=== PATIENT | male | born 1935 | race African-American/Black ===

== ENCOUNTER 2018-03-21 18:56 | Inpatient (IN) | payer OTHER ==
[2018-03-21] MEDS ORDERED: SODIUM CHLORIDE 500 ML IV STA (19:34)
--- NOTE | 2018-03-21 19:34 | PDOC ---
History of Present Illness - General Chief Complaint: Nausea/Vomiting Stated Complaint: VOMIT Time Seen by Provider: 03/21/18 19:33 History Source: Patient - History of Present Illness Initial Comments: 03/21/18 20:08 82 year old male with pmhx of dysphagia, CVA, TYpe 1 DM, HTN GERD, BPH, pressure ulcer, contractures, bed bound male BIBA from [facility] for persistent vomiting x 2 weeks . unable to get IV hydration in the [facility]. patient has no abdominal pain c/o epigastric disomfort and burning chest. denies fever/ chills, 1 Past History - Past Medical History Allergies/Adverse Reactions: Allergies Allergy/AdvReac Type Severity Reaction Status Date / Time No Known Allergies Allergy Verified 03/21/18 19:10 Home Medications: Ambulatory Orders Acetaminophen [Tylenol] 650 mg PO DAILY 03/21/18 Amlodipine Besylate [Norvasc -] 5 mg PO DAILY 03/21/18 Baclofen 5 mg PO DAILY 03/21/18 Collagenase Clostridium Hist. [Santyl] 1 applic TP DAILY 03/21/18 Docusate Sodium [Colace] 200 mg PO DAILY 03/21/18 Famotidine [Pepcid] 20 mg PO DAILY 03/21/18 Ferrous Sulfate 325 mg PO DAILY 03/21/18 Linagliptin [Tradjenta] 5 mg PO DAILY 03/21/18 Mag Hydrox/Al Hydrox/Simeth [Mylanta Oral Suspension -] 10 ml PO DAILY 03/21/18 Mirtazapine [Remeron -] 15 mg PO DAILY 03/21/18 Omeprazole 20 mg PO DAILY 03/21/18 Ondansetron [Zofran -] 4 mg PO DAILY 03/21/18 Polyethylene Glycol 3350 [Glycolax] 17 gm PO DAILY 03/21/18 Simethicone 125 mg PO DAILY 03/21/18 Tamsulosin HCl [Flomax] 0.4 mg PO DAILY 03/21/18 Miscellaneous Medical Supply [Outpatient Order] 1 each ASDIR #1 misc Anemia: Yes CVA: Yes COPD: No Diabetes: Yes GI Disorders: Yes (GERD) Disorders: Yes (BPH) HTN: Yes - Immunization History Immunization Up to Date: Yes - Suicide/Smoking/Psychosocial Hx Smoking History: Never smoked Have you smoked in the past 12 months: No Information on smoking cessation initiated: No Hx Alcohol Use: No Drug/Substance Use Hx: No Review of Systems - Review of Systems Able to Perform ROS?: Yes Is the patient limited Tongan proficient: No Constitutional: No: Symptoms Reported, See HPI, Chills, Diaphoresis, Fever, Loss of Appetite, Malaise, Night Sweats, Weakness, Weight Stable, Unintentional Wgt. Loss, Unexplained wgt Loss, Other HEENTM: No: Symptoms Reported, See HPI, Eye Pain, Blurred Vision, Tearing, Recent change in vision, Double Vision, Cataracts, Ear Pain, Ocular Prothesis, Ear Discharge, Nose Pain, Nose Congestion, Tinnitus, Nose Bleeding, Hearing Loss , Throat Pain, Throat Swelling, Mouth Pain, Dental Problems, Difficulty Swallowing, Mouth Swelling, Other ABD/GI: Yes: Nausea, Vomiting. No: Abdominal cramping Musculoskeletal: No: Symptoms Reported, See HPI, Back Pain, Gout, Joint Pain, Joint Swelling, Muscle Pain, Muscle Weakness, Neck Pain, Joint Stiffness, Other *Physical Exam - Vital Signs Last Vital Signs Temp Pulse Resp BP Pulse Ox 98.6 F 99 H 17 126/65 99 03/21/18 19:02 03/21/18 19:02 03/21/18 19:02 03/21/18 19:02 03/21/18 19:02 - Physical Exam General Appearance: Yes: Appropriately Dressed Respiratory/Chest: positive: Lungs Clear, Normal Breath Sounds Cardiovascular: positive: Regular Rhythm, Regular Rate Gastrointestinal/Abdominal: positive: Normal Bowel Sounds, Soft. negative: Tender Extremity: positive: Normal Capillary Refill, Normal Inspection, Normal Range of Motion Integumentary: positive: Normal Color, Dry, Warm Neurologic: positive: Fully Oriented, Alert, Other (contracted lower extremities. ) Moderate Sedation - Procedure Monitoring Vital Signs: Procedure Monitoring Vital Signs Temperature 98.6 F 03/21/18 19:02 Pulse Rate 99 H 03/21/18 19:02 Respiratory Rate 17 03/21/18 19:02 Blood Pressure 126/65 03/21/18 19:02 O2 Sat by Pulse Oximetry (%) 99 03/21/18 19:02 ED Treatment Course - LABORATORY CBC & Chemistry Diagram: 03/26/18 06:30 03/26/18 06:30 Progress Note - Progress Note Progress Note: A: dehydration; FTT, UTI P: labs EKG IVF CTAP chest xray Medical Decision Making - Medical Decision Making 03/21/18 21:25 Hgb: 7.7. NE record last Hgb 8.3 on 03/12/18 03/22/18 00:17 CTAP: Moderate size left pleural effusion with enhancing pleura which may be chronic and/or indicate empyema. Left basilar consolidation may represent round atelectasis or pneumonia. Right lower lobe calcified pleural plaque with associated round atelectasis. Splenomegaly of uncertain cause. Mild periportal edema should be correlated and LFTs. Hepatitis is considered. Anasarca. Moderate prostate enlargement. 03/22/18 00:40 patient Failure to thirve in the [facility] with persistent vomiting. will place in obs for further management of care. patient signed out to Dr. Dumont for observation status *DC/Admit/Observation/Transfer Diagnosis at time of Disposition: Dehydration, Epigastric abdominal pain UTI (urinary tract infection) Qualifiers: Urinary tract infection type: acute cystitis Hematuria presence: without hematuria Qualified Code(s): N30.00 - Acute cystitis without hematuria Anemia Qualifiers: Anemia type: unspecified type Qualified Code(s): D64.9 - Anemia, unspecified Nausea & vomiting Qualifiers: Vomiting type: unspecified Vomiting Intractability: non-intractable Qualified Code(s): R11.2 - Nausea with vomiting, unspecified - Discharge Dispostion Decision to Admit order: Yes - Prescriptions - Referrals - Patient Instructions - Post Discharge Activity
[2018-03-21] MEDS ORDERED: ONDANSETRON 4 MG/2 ML VIAL IVPUSH ONE (19:45)
--- NOTE | 2018-03-21 20:01 | PDOC ---
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, abd soft, nt, nd, no guarding <Yoandy Pierre - Last Filed: 03/22/18 01:40> ED Treatment Course - LABORATORY CBC & Chemistry Diagram: 03/21/18 20:09 03/21/18 20:09 - ADDITIONAL ORDERS Additional order review: Laboratory Results 03/21/18 20:09 Lactic Acid 0.8 03/21/18 20:09 RBC 3.04 L MCV 75.6 L MCHC 33.7 RDW 18.6 H MPV 8.7 Neutrophils % 77.3 Lymphocytes % 9.8 Monocytes % 10.8 H Eosinophils % 1.4 Basophils % 0.7 - Medications Given in the ED: ED Medications Discontinued Medications Generic Name Dose Route Start Last Admin Trade Name Jarrett PRN Reason Stop Dose Admin Sodium Chloride 500 mls @ 500 mls/hr 03/21/18 19:34 03/21/18 20:58 Normal Saline - IV 03/21/18 20:33 500 mls/hr ASDIR STA Administration Famotidine/Sodium Chloride 20 mg in 50 mls @ 100 mls/hr 03/21/18 20:14 20:58 Pepcid 20 Mg Premixed Ivpb - IVPB 03/21/18 20:43 100 mls/hr ONCE ONE Administration Ondansetron HCl 4 mg 03/21/18 19:45 03/21/18 20:58 Zofran Injection IVPUSH 03/21/18 19:46 4 mg ONCE ONE Administration <Emmy Guardado - Last Filed: 03/21/18 21:13> - LABORATORY CBC & Chemistry Diagram: 03/21/18 20:09 03/21/18 20:09 <Yoandy Pierre - Last Filed: 03/22/18 01:40> Medical Decision Making - Medical Decision Making 03/21/18 20:50 82M sent from [place] 2/2 persistent vomiting over 2 weeks. f/u labs, IVF hydration re-eval likely admit <Yoandy Pierre - Last Filed: 03/22/18 01:40> *DC/Admit/Observation/Transfer - Attestations Scribe Attestion: 03/21/18 21:14 Documentation prepared by RYLAND Deal, acting as manager medical writing for Yoandy Pierre MD. <Emmy Guardado - Last Filed: 03/21/18 21:13> <Yoandy Pierre - Last Filed: 03/22/18 01:40> Diagnosis at time of Disposition: Dehydration, UTI (urinary tract infection), Anemia, Epigastric abdominal pain, Nausea & vomiting
[2018-03-21] MEDS ORDERED: FAMOTIDINE 20 MG/50 ML IVPB 20 MG/50 ML MG IVPB ONE ×2 (20:14→20:47)
[2018-03-21 20:37] LABS: BASO % 0.7 % (0-2.0); EOS % 1.4 % (0-4.5); HEMOGLOBIN 7.7 GM/dL (11.7-16.9); LYMPH % 9.8 % (8-40); MCH 25.5 pg (25.7-33.7); MCHC 33.7 g/dl (32.0-35.9); MEAN CELL VOLUME 75.6 fl (80-96); MEAN PLT VOLUME 8.7 fl (7.5-11.1); MONO % 10.8 % (3.8-10.2); NEUT % 77.3 % (42.8-82.8); PLATELET COUNT 421 K/MM3 (134-434); RBC 3.04 M/mm3 (4.00-5.60); RDW 18.6 % (11.9-15.9); WHITE BLOOD COUNT 6.1 K/mm3 (4.0-10.0)
[2018-03-21] MEDS ORDERED: ONDANSETRON 4 MG/2 ML VIAL ONE (20:47)
[2018-03-21 21:12] LABS: URINE APPEARANCE TURBID; URINE BILIRUBIN NEGATIVE (<2.0 mg/dL); URINE COLOR AMBER; URINE GLUCOSE (UA) NEGATIVE (NEGATIVE); URINE KETONE NEGATIVE (NEGATIVE); URINE LEUK ESTERASE 3+ (NEGATIVE); URINE NITRITE NEGATIVE (NEGATIVE); URINE PROTEIN 2+ (NEGATIVE)
[2018-03-21 21:28] LABS: URINE BACTERIA MANY /hpf (NONE SEEN)
[2018-03-21 21:41] LABS: ALBUMIN 2.8 g/dl (3.4-5.0); ALK PHOS 98 U/L (45-117); ANION GAP 9 MMOL/L (8-16); BILIRUBIN,TOTAL 0.3 mg/dL (0.2-1); BLOOD UREA NITROGEN 26 mg/dL (7-18); CALCIUM 8.3 mg/dL (8.5-10.1); CHLORIDE 102 mmol/L (98-107); CO2 29 mmol/L (21-32); CREATININE 0.8 mg/dL (0.55-1.3); GLUCOSE,RANDOM 218 mg/dL (74-106); LIPASE 138 U/L (73-393); POTASSIUM 4.7 mmol/L (3.5-5.1); SGOT/AST 15 U/L (15-37); SGPT/ALT 27 U/L (13-61); SODIUM 140 mmol/L (136-145); TOT PROT 6.2 g/dl (6.4-8.2)
[2018-03-21] MEDS ORDERED: SODIUM CHLORIDE 1,000 ML IV SCH (21:45)
[2018-03-21 22:03] LABS: VENOUS PC02 48.7 mmHg (38-52); VENOUS PH 7.41 (7.32-7.42); VENOUS PO2 73.2 mmHg (28-48)
[2018-03-22] MEDS ORDERED: CEFTRIAXONE 1,000 MG in DEXTROSE 5%-WATER - 50 ML IVPB ONE (00:25)
[2018-03-22] MEDS ORDERED: CEFTRIAXONE 1 GM/50 ML BAG ONE (00:28)
--- NOTE | 2018-03-22 00:44 | HP ---
CHIEF COMPLAINT: vomiting, dehydration PCP: Manohar HISTORY OF PRESENT ILLNESS: 82 year old male with pmhx of dysphagia, CVA, TYpe 1 DM, HTN GERD, BPH, pressure ulcer, contractures, bed bound male BIBA from [facility] for persistent vomiting for several days. Patient also was c/o epigastric pain however when I saw him he denied. No shortness of breath. ER course was notable for: (1) abdomen/pelvis CT (2) IV fluid hydration (3) Recent Travel: no PAST MEDICAL HISTORY: dysphagia, CVA, TYpe 1 DM, HTN GERD, BPH, pressure ulcer, contractures PAST SURGICAL HISTORY: no Social History: Smoking:no Alcohol: no Drugs: no Family History:no Allergies No Known Allergies Allergy (Verified 03/21/18 19:10) HOME MEDICATIONS: Home Medications Medication Instructions Recorded Acetaminophen [Tylenol] 650 mg PO DAILY 03/21/18 Amlodipine Besylate [Norvasc -] 5 mg PO DAILY 03/21/18 Baclofen 5 mg PO DAILY 03/21/18 Collagenase Clostridium Hist. 1 applic TP DAILY 03/21/18 [Santyl] Docusate Sodium [Colace] 200 mg PO DAILY 03/21/18 Famotidine [Pepcid] 20 mg PO DAILY 03/21/18 Ferrous Sulfate 325 mg PO DAILY 03/21/18 Linagliptin [Tradjenta] 5 mg PO DAILY 03/21/18 Mag Hydrox/Al Hydrox/Simeth 10 ml PO DAILY 03/21/18 [Mylanta Oral Suspension -] Mirtazapine [Remeron -] 15 mg PO DAILY 03/21/18 Omeprazole 20 mg PO DAILY 03/21/18 Ondansetron [Zofran -] 4 mg PO DAILY 03/21/18 Polyethylene Glycol 3350 [Glycolax] 17 gm PO DAILY 03/21/18 Simethicone 125 mg PO DAILY 03/21/18 Tamsulosin HCl [Flomax] 0.4 mg PO DAILY 03/21/18 REVIEW OF SYSTEMS CONSTITUTIONAL: Absent: fever, chills, diaphoresis, generalized weakness, malaise, loss of appetite, weight change HEENT: Absent: rhinorrhea, nasal congestion, throat pain, throat swelling, difficulty swallowing, mouth swelling, ear pain, eye pain, visual changes CARDIOVASCULAR: Absent: chest pain, syncope, palpitations, irregular heart rate, lightheadedness , peripheral edema RESPIRATORY: Absent: cough, shortness of breath, dyspnea with exertion, orthopnea, wheezing, stridor, hemoptysis GASTROINTESTINAL: Absent: abdominal pain, abdominal distension, diarrhea, constipation, melena, hematochezia Present: nausea, vomiting, GENITOURINARY: Absent: dysuria, frequency, urgency, hesitancy, hematuria, flank pain, genital pain MUSCULOSKELETAL: Absent: myalgia, arthralgia, joint swelling, back pain, neck pain SKIN: Absent: rash, itching, pallor HEMATOLOGIC/IMMUNOLOGIC: Absent: easy bleeding, easy bruising, lymphadenopathy, frequent infections ENDOCRINE: Absent: unexplained weight gain, unexplained weight loss, heat intolerance, cold intolerance NEUROLOGIC: Absent: headache, focal weakness or paresthesias, dizziness, unsteady gait, seizure, mental status changes, bladder or bowel incontinence PSYCHIATRIC: Absent: anxiety, depression, suicidal or homicidal ideation, hallucinations. PHYSICAL EXAMINATION Vital Signs - 24 hr 03/21/18 03/21/18 03/22/18 19:02 22:34 00:33 Temperature 98.6 F Pulse Rate 99 H Pulse Rate [ 96 H 95 H Apical] Respiratory 17 18 16 Rate Blood Pressure 126/65 Blood Pressure 140/56 L 135/50 L [Left Arm] O2 Sat by Pulse 99 94 L 95 Oximetry (%) GENERAL: Awake, alert, thin, cachectic HEAD: Normal with no signs of trauma. EYES: Pupils equal, round and reactive to light, extraocular movements intact, sclera anicteric, conjunctiva clear. No lid lag. EARS, NOSE, THROAT: Ears normal, nares patent, oropharynx clear without exudates. Moist mucous membranes. NECK: Normal range of motion, supple without lymphadenopathy, JVD, or masses. LUNGS: Breath sounds equal, clear to auscultation bilaterally. No wheezes, and no crackles. No accessory muscle use. HEART: Regular rate and rhythm, normal S1 and S2 without murmur, rub or gallop. ABDOMEN: Soft, nontender, not distended, normoactive bowel sounds, no guarding, no rebound, no masses. No hepatomegaly or splenomegaly. MUSCULOSKELETAL: Normal range of motion at all joints. No bony deformities or tenderness. No CVA tenderness. UPPER EXTREMITIES: 2+ pulses, warm, well-perfused. No cyanosis. No clubbing. No peripheral edema. LOWER EXTREMITIES: 2+ pulses, warm, well-perfused. No calf tenderness. No peripheral edema. NEUROLOGICAL: bedbound, contractures + , unable to ambulate PSYCHIATRIC: Cooperative. Good eye contact. Appropriate mood and affect. SKIN: Warm, dry, normal turgor, no rashes or lesions noted, normal capillary refill. NO active skin ulcers as per nursing Laboratory Results - last 24 hr 03/21/18 03/21/18 03/21/18 20:09 20:09 20:09 WBC 6.1 RBC 3.04 L Hgb 7.7 L Hct 23.0 L MCV 75.6 L MCH 25.5 L MCHC 33.7 RDW 18.6 H Plt Count 421 MPV 8.7 Absolute Neuts (auto) 4.7 Neutrophils % 77.3 Lymphocytes % 9.8 Monocytes % 10.8 H Eosinophils % 1.4 Basophils % 0.7 Nucleated RBC % 0 VBG pH POC VBG pCO2 POC VBG pO2 Mixed VBG HCO3 Sodium 140 Potassium 4.7 Chloride 102 Carbon Dioxide 29 Anion Gap 9 BUN 26 H Creatinine 0.8 Creat Clearance w eGFR > 60 Random Glucose 218 H Lactic Acid Calcium 8.3 L Total Bilirubin 0.3 AST 15 ALT 27 Alkaline Phosphatase 98 Creatine Kinase 20 L Troponin I < 0.02 Total Protein 6.2 L Albumin 2.8 L Lipase 138 Urine Color Urine Appearance Urine pH Ur Specific [place] Urine Protein Urine Glucose (UA) Urine Ketones Urine Blood Urine Nitrite Urine Bilirubin Urine Urobilinogen Ur Leukocyte Esterase Urine WBC (Auto) Urine RBC (Auto) Urine Bacteria Stool Occult Blood Acetone, Qual 03/21/18 03/21/18 03/21/18 20:09 20:09 21:00 WBC RBC Hgb Hct MCV MCH MCHC RDW Plt Count MPV Absolute Neuts (auto) Neutrophils % Lymphocytes % Monocytes % Eosinophils % Basophils % Nucleated RBC % VBG pH POC VBG pCO2 POC VBG pO2 Mixed VBG HCO3 Sodium Potassium Chloride Carbon Dioxide Anion Gap BUN Creatinine Creat Clearance w eGFR Random Glucose Lactic Acid 0.8 Calcium Total Bilirubin AST ALT Alkaline Phosphatase Creatine Kinase Troponin I Total Protein Albumin Lipase Urine Color Faby Urine Appearance Turbid Urine pH 5.0 Ur Specific [place] 1.014 Urine Protein 2+ H Urine Glucose (UA) Negative Urine Ketones Negative Urine Blood 1+ H Urine Nitrite Negative Urine Bilirubin Negative Urine Urobilinogen 2.0 Ur Leukocyte Esterase 3+ H Urine WBC (Auto) 900 Urine RBC (Auto) 6 Urine Bacteria Many Stool Occult Blood Acetone, Qual Trace 03/21/18 03/21/18 21:50 21:57 WBC RBC Hgb Hct MCV MCH MCHC RDW Plt Count MPV Absolute Neuts (auto) Neutrophils % Lymphocytes % Monocytes % Eosinophils % Basophils % Nucleated RBC % VBG pH 7.41 POC VBG pCO2 48.7 POC VBG pO2 73.2 H Mixed VBG HCO3 30.2 H Sodium Potassium Chloride Carbon Dioxide Anion Gap BUN Creatinine Creat Clearance w eGFR Random Glucose Lactic Acid Calcium Total Bilirubin AST ALT Alkaline Phosphatase Creatine Kinase Troponin I Total Protein Albumin Lipase Urine Color Urine Appearance Urine pH Ur Specific [place] Urine Protein Urine Glucose (UA) Urine Ketones Urine Blood Urine Nitrite Urine Bilirubin Urine Urobilinogen Ur Leukocyte Esterase Urine WBC (Auto) Urine RBC (Auto) Urine Bacteria Stool Occult Blood Negative Acetone, Qual CTAP: Moderate size left pleural effusion with enhancing pleura which may be chronic and/or indicate empyema. Left basilar consolidation may represent round atelectasis or pneumonia. Right lower lobe calcified pleural plaque with associated round atelectasis. Splenomegaly of uncertain cause. Mild periportal edema Anasarca. Moderate prostate enlargement. EKG reviewed ASSESSMENT/PLAN: #82yo man [facility] resulting in [facility]. Now improved -possibly gastroenteritis? Prior epigastric pain may have been from persistent vomiting. Now with no complaints. #Nausea/vomiting -observation -IV fluid hydration -zofran IV prn #Pyuria- no symptoms of UTI, no dysuria or fever -no antibiotics necessary #Anemia- microcytic, stable VS -trend hgb -stool guiac -iron studies, ferritin, vit b12 -c/w ferrous sulfate #Type 1 DM -novolog sliding scale -send a1c #HTN -controlled -amlodpine #Epigastric pain/GERD, no signs of ischemia on EKG. troponin negative -protonix #BPH -flomax #diet- -regular diet as per jail records -will order diabetic diet #DVT ppx -heparin sc Visit type - Emergency Visit Emergency Visit: Yes ED Registration Date: 03/22/18 Care time: The patient presented to the Emergency Department on the above date and was hospitalized for further evaluation of their emergent condition. - New Patient This patient is new to me today: Yes Date on this admission: 03/22/18 - Critical Care Critical Care patient: No
[2018-03-22] MEDS: SODIUM CHLORIDE 1,000 ML IV SCH ×2 (01:27→13:13)
[2018-03-22] MEDS ORDERED: ONDANSETRON 4 MG/2 ML VIAL IVPB PRN (01:40)
[2018-03-22 02:57] VITALS: BMI 21.9
[2018-03-22] MEDS ORDERED: HEPARIN NA (PORCINE) 5,000 UNITS/ML 1ML VIAL SQ SCH (06:00)
[2018-03-22] MEDS: INSULIN SLIDING SCALE (NOVOLOG) 1 VIAL SQ SCH ×4 (06:11→22:19)
[2018-03-22 08:40] LABS: ALBUMIN 2.6 g/dl (3.4-5.0); ALK PHOS 93 U/L (45-117); ANION GAP 8 MMOL/L (8-16); BILIRUBIN,TOTAL 0.3 mg/dL (0.2-1); BLOOD UREA NITROGEN 22 mg/dL (7-18); CHLORIDE 106 mmol/L (98-107); CO2 29 mmol/L (21-32); CREATININE 0.8 mg/dL (0.55-1.3); GLUCOSE,RANDOM 134 mg/dL (74-106); POTASSIUM 4.5 mmol/L (3.5-5.1); SGOT/AST 5 U/L (15-37); SGPT/ALT 21 U/L (13-61); SODIUM 142 mmol/L (136-145); TOT PROT 5.8 g/dl (6.4-8.2)
[2018-03-22 09:00] LABS: HEMATOCRIT 22.5 % (35.4-49); HEMOGLOBIN 7.1 GM/dL (11.7-16.9); MCH 24.4 pg (25.7-33.7); MCHC 31.4 g/dl (32.0-35.9); MEAN CELL VOLUME 77.6 fl (80-96); MEAN PLT VOLUME 8.5 fl (7.5-11.1); PLATELET COUNT 324 K/MM3 (134-434); RDW 18.3 % (11.9-15.9); WHITE BLOOD COUNT 5.6 K/mm3 (4.0-10.0)
[2018-03-22] MEDS: TAMSULOSIN HCL 0.4 MG CAP PO SCH (09:00)
[2018-03-22] MEDS: ONDANSETRON 4 MG/2 ML VIAL IVPB SCH ×2 (09:00→13:09)
[2018-03-22] MEDS: PANTOPRAZOLE 20 MG TABLET (FP) PO SCH (09:17)
[2018-03-22] MEDS: amLODIPine BESYLATE 5 MG TABLET (FP) PO SCH (09:17)
[2018-03-22] MEDS: RANITIDINE HCL 150 MG TABLET (FP) PO SCH (09:17)
[2018-03-22] MEDS: BACLOFEN 10 MG TABLET (FP) PO SCH (09:17)
[2018-03-22] MEDS: METOCLOPRAMIDE HCL INJECTION 10 MG/2 ML VIAL IVPB SCH ×2 (09:18→18:28)
[2018-03-22] MEDS: POLYETHYLENE GLYCOL 3350 255 GM BTL PO SCH (09:19)
[2018-03-22] MEDS ORDERED: FERROUS SO4 325 MG TABLET (FP) PO SCH (10:00)
[2018-03-22] MEDS ORDERED: MAG HYDROX/AL HYDROX/SIMETH 30 ML UNIT-DOSE CUP PO SCH (10:00)
[2018-03-22] MEDS ORDERED: DOCUSATE SODIUM 100 MG CAPSULE (FP) PO SCH (10:00)
[2018-03-22] MEDS ORDERED: PATIENT'S OWN MEDICATION (NON-FORMULARY) (Omeprazole [Omeprazole] 20 MG) PO SCH (10:00)
[2018-03-22] MEDS ORDERED: PATIENT'S OWN MEDICATION (NON-FORMULARY) (Simethicone [Simethicone] 125 MG) PO SCH (10:00)
[2018-03-22] MEDS ORDERED: ONDANSETRON 4 MG TABLET PO SCH (10:00)
--- NOTE | 2018-03-22 10:28 | EKG ---
Test Reason : Blood Pressure : / mmHG Vent. Rate : 099 BPM Atrial Rate : 099 BPM P-R Int : 166 ms QRS Dur : 090 ms QT Int : 336 ms P-R-T Axes : 067 042 071 degrees QTc Int : 431 ms SINUS RHYTHM WITH PREMATURE SUPRAVENTRICULAR COMPLEXES OTHERWISE NORMAL ECG NO PREVIOUS ECGS AVAILABLE Confirmed by DANYELLE HILL, JAMES ([id number]) on 03/22/2018 10:28:34 AM Referred By: Confirmed By:JAMES BASSETT MD
--- NOTE | 2018-03-22 13:47 | PN ---
Progress Note, Physician Chief Complaint: patient seen and examined to get prbc today gi conult pending for anemia - Current Medication List Current Medications: Active Medications Amlodipine Besylate (Norvasc -) 5 mg PO DAILY [facility] Last Admin: 03/22/18 09:17 Dose: 5 mg Baclofen (Lioresal -) 5 mg PO DAILY [facility] Last Admin: 03/22/18 09:17 Dose: 5 mg Docusate Sodium (Colace -) 200 mg PO DAILY [facility] Last Admin: 03/22/18 09:17 Dose: 200 mg Ferrous Sulfate (Feosol -) 325 mg PO DAILY [facility] Last Admin: 03/22/18 09:17 Dose: 325 mg Heparin Sodium (Porcine) (Heparin -) 5,000 unit SQ TID [facility] Last Admin: 03/22/18 06:10 Dose: 5,000 unit Sodium Chloride (Normal Saline -) 1,000 mls @ 75 mls/hr IV ASDIR [facility] Last Admin: 03/22/18 13:13 Dose: 75 mls/hr Insulin Aspart (Novolog Vial Sliding Scale -) 1 vial SQ ACHS [facility]; Protocol Last Admin: 03/22/18 11:23 Dose: Not Given Metoclopramide HCl (Reglan Injection -) 10 mg IVPB Q8H-IV [facility] Last Admin: 03/22/18 09:18 Dose: 10 mg Mirtazapine (Remeron -) 15 mg PO HS [facility] Ondansetron HCl (Zofran Injection) 4 mg IVPUSH Q4H PRN PRN Reason: NAUSEA AND/OR VOMITING Pantoprazole Sodium (Protonix -) 20 mg PO DAILY [facility] Last Admin: 03/22/18 09:17 Dose: 20 mg Polyethylene Glycol (Miralax (For Bowel Prep) -) 17 gm PO DAILY [facility] Last Admin: 03/22/18 09:19 Dose: 17 grams Ranitidine HCl (Zantac -) 150 mg PO DAILY [facility] Last Admin: 03/22/18 09:17 Dose: 150 mg Tamsulosin HCl (Flomax -) 0.4 mg PO DAILY@0830 [facility] Last Admin: 03/22/18 09:00 Dose: 0.4 mg - Objective Vital Signs: Vital Signs Temperature 98.0 F 03/22/18 09:00 Pulse Rate 97 H 03/22/18 09:00 Respiratory Rate 18 03/22/18 09:00 Blood Pressure 122/65 03/22/18 09:00 O2 Sat by Pulse Oximetry (%) 95 03/22/18 01:21 Constitutional: Yes: Calm Cardiovascular: Yes: Regular Rate and Rhythm, S1, S2 Respiratory: Yes: CTA Bilaterally Gastrointestinal: Yes: Normal Bowel Sounds, Soft Labs: CBC, BMP 03/22/18 06:30 03/22/18 06:30 Problem List - Problems (1) Anemia Assessment/Plan: prbc iron panel heme gi consult iron and ppi Code(s): D64.9 - ANEMIA, UNSPECIFIED Qualifiers: Anemia type: unspecified type Qualified Code(s): D64.9 - Anemia, unspecified (2) BPH (benign prostatic hyperplasia) Assessment/Plan: flomax Code(s): N40.0 - BENIGN PROSTATIC HYPERPLASIA WITHOUT LOWER URINRY TRACT SYMP
[2018-03-22] MEDS ORDERED: ONDANSETRON 4 MG/2 ML VIAL IVPUSH PRN (16:00)
--- NOTE | 2018-03-22 16:56 | CONSULT ---
Consultation: REQUESTING PROVIDER: Dr. Encarnacion CONSULT REQUEST FOR HEMATOLOGY/ONCOLOGY: We have been asked to medically evaluate this patient for Anemia. HISTORY OF PRESENT ILLNESS: Patient poor historian and all information obtained from medical records and house staff Patient is an 82 year old male from [facility] with a PMHx of NIDDMII, HTN, BPH, CVA w/ Dysphagia, GERD, Pressure injuries who was [facility]IBEMS from the [facility] for Nausea and vomiting. According to the medical records, patient has had persistent vomiting for several days associated with epigastric pain. There has been no record of melena, hematochzia, hematemesis, hematuria, dysuria. Patient on my encounter denies abdominal pain, chest pain, palpitations, shortness of breath. Spoke to patients son and daughter who report that patient never had colonoscopy done in the past but had EGD for his ulcers Patient was also hospitalized at [facility] for Bleeding that required blood transfusions two years ago PMHx: NIDDMII HTN GERD BPH CVA w/ Dysphagia Pressure injuries PSHx: Denies Social Hx: Lives at [facility] Denies alcohol use Denies smoking Denies drug use Allergies: NKDA REVIEW OF SYSTEMS: Unable to obtain PHYSICAL EXAMINATION Vital Signs Temperature 98.7 F 03/22/18 14:39 Pulse Rate 93 H 03/22/18 14:39 Respiratory Rate 16 03/22/18 14:39 Blood Pressure 117/51 L 03/22/18 14:39 O2 Sat by Pulse Oximetry (%) 95 03/22/18 01:21 GENERAL: Thin elderly male. Awake, alert, oriented to person only, in no acute distress. HEAD: Normal with no signs of trauma. EYES: PERRL sclera anicteric, conjunctiva clear. ENT:Oropharynx clear without exudates. Moist mucous membranes. NECK: (-) lymphadenopathy, JVD, or masses. LUNGS: Breath sounds equal, clear to auscultation bilaterally. No wheezes, and no crackles. No accessory muscle use. HEART: Regular rate and rhythm, normal S1 and S2 without murmur, rub or gallop. ABDOMEN: Soft, nontender, not distended, normoactive bowel sounds, no guarding, no rebound, no masses. No hepatomegaly or splenomegaly. MUSCULOSKELETAL: No CVA tenderness. EXTREMITIES: Contractures throughout UE and LE. Unable to ambulate. NEUROLOGICAL: Unable to assess PSYCHIATRIC: Poor eye contact SKIN: Warm, dry, normal turgor, no rashes or lesions noted. Laboratory Results 03/22/18 06:30 03/22/18 06:30 18 03/22/18 20:09 06:30 Total Protein 5.8 L Albumin 2.6 L Lipase 138 Vitamin B12 756 Active Medications Generic Name Dose Route Start Last Admin Trade Name Freq PRN Reason Stop Dose Admin Amlodipine Besylate 5 mg 03/22/18 10:00 03/22/18 09:17 Norvasc - PO 5 mg DAILY JOHN Administration Baclofen 5 mg 03/22/18 10:00 03/22/18 09:17 Lioresal - PO 5 mg DAILY JOHN Administration Docusate Sodium 200 mg 03/22/18 10:00 03/22/18 09:17 Colace - PO 200 mg DAILY JOHN Administration Ferrous Sulfate 325 mg 03/22/18 10:00 03/22/18 09:17 Feosol - PO 325 mg DAILY JOHN Administration Heparin Sodium (Porcine) 5,000 unit 03/22/18 22:00 Heparin - SQ BID JOHN Sodium Chloride 1,000 mls @ 75 mls/hr 03/22/18 01:00 03/22/18 13:13 Normal Saline - IV 75 mls/hr ASDIR JOHN Administration Insulin Aspart 1 vial 03/22/18 07:00 03/22/18 11:23 Novolog Vial Sliding Scale - SQ Not Given ACHS JOHN Protocol Metoclopramide HCl 10 mg 03/22/18 10:00 03/22/18 09:18 Reglan Injection - IVPB 10 mg Q8H-IV JOHN Administration Mirtazapine 15 mg 03/22/18 22:00 Remeron - PO HS JOHN Ondansetron HCl 4 mg 03/22/18 16:00 Zofran Injection IVPUSH Q4H PRN NAUSEA AND/OR VOMITING Pantoprazole Sodium 20 mg 03/22/18 10:00 03/22/18 09:17 Protonix - PO 20 mg DAILY JOHN Administration Polyethylene Glycol 17 gm 03/22/18 10:00 03/22/18 09:19 Miralax (For Bowel Prep) - PO 17 grams DAILY JOHN Administration Ranitidine HCl 150 mg 03/22/18 10:00 03/22/18 09:17 Zantac - PO 150 mg DAILY JOHN Administration Tamsulosin HCl 0.4 mg 03/22/18 08:30 03/22/18 09:00 Flomax - PO 0.4 mg DAILY@0830 JOHN Administration ASSESSMENT/PLAN: Patient is an 82 year old male who presented for persistent nausea/vomiting and was found to have Anemia. We were consulted for further monitoring and management. Problem List: Nausea/Vomiting Microcytic Anemia GERD NIDDMII HTN BPH CVA w/ Dysphagia Pressure injuries PLAN: -Patient has history of Iron deficiency anemia according to [place] records and is on Iron supplements. Microcytic anemia likely from iron def with poor oral intake as well as history of persistent nausea/vomiting. Will order Iron studies. -Stool Guaic negative but patient is thin and presents with severe anemia requiring transfusions. Cannot rule out malignancy source. -GI consult placed to rule out GI bleed with possible EGD to be done. Will likely require Colonoscopy and GI work up to rule out malignancy -Transfuse As needed -Continue to monitor CBC and Coags Dispo: We will continue to follow the patient. Thank you for this consultative opportunity. Visit type - Emergency Visit Emergency Visit: Yes ED Registration Date: 03/22/18 Care time: The patient presented to the Emergency Department on the above date and was hospitalized for further evaluation of their emergent condition. - New Patient This patient is new to me today: Yes Date on this admission: 03/22/18 - Critical Care Critical Care patient: No
--- NOTE | 2018-03-22 17:21 | CON.GI ---
Consult Consult Specialty:: GI Referred by:: Dr Encarnacion - History of Present Illness History of Present Illness: 82 y/o male was transferred from the [facility] with nausea and vomiting. She was given PPI and antiemetic. This morning she denies nausea, vomitng and abdominal pain. She also anemic and receives iron supplement s daily. SHe denies recent weight loss, melena and rectal bleeding. - Alcohol/Substance Use Hx Alcohol Use: No - Smoking History Smoking history: Never smoked Have you smoked in the past 12 months: No Home Medications - Allergies Allergies/Adverse Reactions: Allergies Allergy/AdvReac Type Severity Reaction Status Date / Time No Known Allergies Allergy Verified 03/21/18 19:10 - Home Medications Home Medications: Ambulatory Orders Acetaminophen [Tylenol] 650 mg PO DAILY 03/21/18 Amlodipine Besylate [Norvasc -] 5 mg PO DAILY 03/21/18 Baclofen 5 mg PO DAILY 03/21/18 Collagenase Clostridium Hist. [Santyl] 1 applic TP DAILY 03/21/18 Docusate Sodium [Colace] 200 mg PO DAILY 03/21/18 Famotidine [Pepcid] 20 mg PO DAILY 03/21/18 Ferrous Sulfate 325 mg PO DAILY 03/21/18 Linagliptin [Tradjenta] 5 mg PO DAILY 03/21/18 Mag Hydrox/Al Hydrox/Simeth [Mylanta Oral Suspension -] 10 ml PO DAILY 03/21/18 Mirtazapine [Remeron -] 15 mg PO DAILY 03/21/18 Omeprazole 20 mg PO DAILY 03/21/18 Ondansetron [Zofran -] 4 mg PO DAILY 03/21/18 Polyethylene Glycol 3350 [Glycolax] 17 gm PO DAILY 03/21/18 Simethicone 125 mg PO DAILY 03/21/18 Tamsulosin HCl [Flomax] 0.4 mg PO DAILY 03/21/18 Physical Exam-GI Vital Signs: Vital Signs Temperature 98.7 F 03/22/18 14:39 Pulse Rate 93 H 03/22/18 14:39 Respiratory Rate 16 03/22/18 14:39 Blood Pressure 117/51 L 03/22/18 14:39 O2 Sat by Pulse Oximetry (%) 95 03/22/18 01:21 Constitutional: Yes: Cachectic Eyes: Yes: Conjunctiva Clear HENT: Yes: Atraumatic Neck: Yes: Supple Cardiovascular: Yes: Regular Rate and Rhythm Respiratory: Yes: CTA Bilaterally ...Palpate: Yes: Soft. No: Firm/Rigid, Guarding, Hepatomegaly, Mass, Pulsatile Mass, Splenomegaly, Tenderness Labs: CBC, BMP 03/22/18 06:30 03/22/18 06:30 Problem List - Problems (1) Anemia Assessment/Plan: etiology unclear R> will need GI w/u once medically cleared stool guaiac od x 3 d/c iron for now Code(s): D64.9 - ANEMIA, UNSPECIFIED Qualifiers: Anemia type: unspecified type Qualified Code(s): D64.9 - Anemia, unspecified
[2018-03-22] MEDS: SODIUM PHOSPHATE/NA BIPHOS 133 ML ENEMA PR SCH ×2 (18:00→22:20)
[2018-03-22] MEDS: MAGNESIUM CITRATE 300 ML BOTTLE PO SCH (18:23)
--- NOTE | 2018-03-22 19:41 | PN ---
Teaching Attending Note Name of Resident: Kristen Sandoval ATTENDING PHYSICIAN STATEMENT I saw and evaluated the patient. I reviewed the resident's note and discussed the case with the resident. I agree with the resident's findings and plan as documented. ASSESSMENT AND PLAN: 82 year old male with pmhx of dysphagia, CVA, TYpe 1 DM, HTN GERD, BPH, pressure ulcer, contractures, bed bound male BIBA from [facility] for persistent vomiting x 2 weeks . very poor historian Allergies/Adverse Reactions: Allergies Allergy/AdvReac Type Severity Reaction Status Date / Time No Known Allergies Allergy Verified 03/21/18 19:10 Home Medications: Ambulatory Orders Acetaminophen [Tylenol] 650 mg PO DAILY 03/21/18 Amlodipine Besylate [Norvasc -] 5 mg PO DAILY 03/21/18 Baclofen 5 mg PO DAILY 03/21/18 Collagenase Clostridium Hist. [Santyl] 1 applic TP DAILY 03/21/18 Docusate Sodium [Colace] 200 mg PO DAILY 03/21/18 Famotidine [Pepcid] 20 mg PO DAILY 03/21/18 Ferrous Sulfate 325 mg PO DAILY 03/21/18 Linagliptin [Tradjenta] 5 mg PO DAILY 03/21/18 Mag Hydrox/Al Hydrox/Simeth [Mylanta Oral Suspension -] 10 ml PO DAILY 03/21/18 Mirtazapine [Remeron -] 15 mg PO DAILY 03/21/18 Omeprazole 20 mg PO DAILY 03/21/18 Ondansetron [Zofran -] 4 mg PO DAILY 03/21/18 Polyethylene Glycol 3350 [Glycolax] 17 gm PO DAILY 03/21/18 Simethicone 125 mg PO DAILY 03/21/18 Tamsulosin HCl [Flomax] 0.4 mg PO DAILY 03/21/18 PMH Anemia: Yes CVA: Yes Diabetes: Yes GI Disorders: Yes (GERD) Disorders: Yes (BPH) HTN: Yes - Suicide/Smoking/Psychosocial Hx Smoking History: Never smoked - Vital Signs AFVSS - Physical Exam Respiratory/Chest: positive: decreased at bases Cardiovascular: positive: Regular Rhythm, Regular Rate Gastrointestinal/Abdominal: positive: Normal Bowel Sounds, Soft. ext. --no cyanosis/clubbing/edema A/P 82 year old male with pmhx of dysphagia, CVA, TYpe 1 DM, HTN GERD, BPH, pressure ulcer, contractures, bed bound male BIBA from [facility] for persistent vomiting x 2 weeks Very poor historian Denies specific complaints Anemia--microcytic --nl WBC/platelets Check iron sytudies/ferritin/B12/folate/protein studoes/ESR/CRP CT a/p 03/21/18 with contrast shows letpleural effusion/atelectasis, rt. pleural calcifications, splenomegaly, prostatic enlargement will need gi w/u will follow
[2018-03-22] MEDS: HEPARIN NA (PORCINE) 5,000 UNITS/ML 1ML VIAL SQ SCH (22:18)
[2018-03-22] MEDS: MIRTAZAPINE 15 MG TABLET (FP) PO SCH (22:18)
[2018-03-23] MEDS: METOCLOPRAMIDE HCL INJECTION 10 MG/2 ML VIAL IVPB SCH ×3 (02:45→17:30)
[2018-03-23] MEDS: SODIUM CHLORIDE 1,000 ML IV SCH ×3 (02:45→22:05)
[2018-03-23] MEDS: SODIUM PHOSPHATE/NA BIPHOS 133 ML ENEMA PR SCH ×2 (02:45→06:16)
[2018-03-23] MEDS: INSULIN SLIDING SCALE (NOVOLOG) 1 VIAL SQ SCH ×4 (06:56→22:07)
[2018-03-23 07:16] LABS: BASO % 0.7 % (0-2.0); EOS % 2.7 % (0-4.5); HEMATOCRIT 28.9 % (35.4-49); LYMPH % 14.9 % (8-40); MCH 24.7 pg (25.7-33.7); MCHC 31.3 g/dl (32.0-35.9); MEAN CELL VOLUME 78.8 fl (80-96); MEAN PLT VOLUME 8.6 fl (7.5-11.1); MONO % 11.6 % (3.8-10.2); NEUT % 70.1 % (42.8-82.8); PLATELET COUNT 355 K/MM3 (134-434); RBC 3.67 M/mm3 (4.00-5.60); RDW 17.9 % (11.9-15.9); WHITE BLOOD COUNT 5.6 K/mm3 (4.0-10.0)
[2018-03-23 07:55] LABS: ALBUMIN 2.6 g/dl (3.4-5.0); ALK PHOS 96 U/L (45-117); ANION GAP 5 MMOL/L (8-16); BILIRUBIN,TOTAL 0.6 mg/dL (0.2-1); BLOOD UREA NITROGEN 21 mg/dL (7-18); CHLORIDE 107 mmol/L (98-107); CO2 30 mmol/L (21-32); CREATININE 0.8 mg/dL (0.55-1.3); GLUCOSE,RANDOM 84 mg/dL (74-106); SGOT/AST 7 U/L (15-37); SGPT/ALT 19 U/L (13-61); SODIUM 143 mmol/L (136-145)
[2018-03-23] MEDS: amLODIPine BESYLATE 5 MG TABLET (FP) PO SCH (10:00)
[2018-03-23] MEDS: HEPARIN NA (PORCINE) 5,000 UNITS/ML 1ML VIAL SQ SCH ×2 (10:00→22:07)
[2018-03-23] MEDS: TAMSULOSIN HCL 0.4 MG CAP PO SCH (10:00)
[2018-03-23] MEDS: BACLOFEN 10 MG TABLET (FP) PO SCH (10:00)
[2018-03-23] MEDS: RANITIDINE HCL 150 MG TABLET (FP) PO SCH (10:00)
[2018-03-23] MEDS: PANTOPRAZOLE 20 MG TABLET (FP) PO SCH (10:00)
[2018-03-23] MEDS: POLYETHYLENE GLYCOL 3350 255 GM BTL PO SCH (10:01)
[2018-03-23] MEDS: MAGNESIUM CITRATE 300 ML BOTTLE PO SCH (10:01)
--- NOTE | 2018-03-23 14:44 | PN ---
Progress Note, Physician - Current Medication List Current Medications: Active Medications Amlodipine Besylate (Norvasc -) 5 mg PO DAILY [facility] Last Admin: 03/23/18 10:00 Dose: 5 mg Baclofen (Lioresal -) 5 mg PO DAILY [facility] Last Admin: 03/23/18 10:00 Dose: 5 mg Heparin Sodium (Porcine) (Heparin -) 5,000 unit SQ BID JOHN Last Admin: 03/23/18 10:00 Dose: 5,000 unit Sodium Chloride (Normal Saline -) 1,000 mls @ 75 mls/hr IV ASDIR [facility] Last Admin: 03/23/18 06:18 Dose: 75 mls/hr Ceftriaxone Sodium 1 gm/ (Dextrose) 100 mls @ 200 mls/hr IVPB DAILY [facility]; Protocol Insulin Aspart (Novolog Vial Sliding Scale -) 1 vial SQ ACHS [facility]; Protocol Last Admin: 03/23/18 11:29 Dose: 2 units Metoclopramide HCl (Reglan Injection -) 10 mg IVPB Q8H-IV [facility] Last Admin: 03/23/18 10:00 Dose: 10 mg Mirtazapine (Remeron -) 15 mg PO HS [facility] Last Admin: 03/22/18 22:18 Dose: 15 mg Ondansetron HCl (Zofran Injection) 4 mg IVPUSH Q4H PRN PRN Reason: NAUSEA AND/OR VOMITING Pantoprazole Sodium (Protonix -) 20 mg PO DAILY [facility] Last Admin: 03/23/18 10:00 Dose: 20 mg Polyethylene Glycol (Miralax (For Bowel Prep) -) 17 gm PO DAILY [facility] Last Admin: 03/23/18 10:01 Dose: 17 grams Ranitidine HCl (Zantac -) 150 mg PO DAILY [facility] Last Admin: 03/23/18 10:00 Dose: 150 mg Tamsulosin HCl (Flomax -) 0.4 mg PO DAILY@0830 [facility] Last Admin: 03/23/18 10:00 Dose: 0.4 mg - Objective Vital Signs: Vital Signs Temperature 98.1 F 03/23/18 10:00 Pulse Rate 92 H 03/23/18 10:00 Respiratory Rate 20 03/23/18 10:00 Blood Pressure 140/58 L 03/23/18 10:00 O2 Sat by Pulse Oximetry (%) 95 03/23/18 01:00 Cardiovascular: Yes: S1, S2 Respiratory: Yes: Regular, CTA Bilaterally Gastrointestinal: Yes: Normal Bowel Sounds, Soft. No: Tenderness Labs: CBC, BMP 03/23/18 06:30 03/23/18 06:30 Problem List - Problems (1) Anemia Assessment/Plan: -S/P prbc monitor labs w/u in progress gi hem on case Code(s): D64.9 - ANEMIA, UNSPECIFIED Qualifiers: Anemia type: unspecified type Qualified Code(s): D64.9 - Anemia, unspecified (2) Nausea & vomiting Assessment/Plan: -montor ivf Code(s): R11.2 - NAUSEA WITH VOMITING, UNSPECIFIED Qualifiers: Vomiting type: unspecified Vomiting Intractability: non-intractable Qualified Code(s): R11.2 - Nausea with vomiting, unspecified (3) UTI (urinary tract infection) Assessment/Plan: -Rocephin id consult Code(s): N39.0 - URINARY TRACT INFECTION, SITE NOT SPECIFIED Qualifiers: Urinary tract infection type: acute cystitis Hematuria presence: without hematuria Qualified Code(s): N30.00 - Acute cystitis without hematuria (4) Diabetes Assessment/Plan: bgm ss endo Code(s): E11.9 - TYPE 2 DIABETES MELLITUS WITHOUT COMPLICATIONS
[2018-03-23] MEDS ORDERED: cefTRIAXone SODIUM 1 GM VIAL ONE ×2 (16:18→16:20)
[2018-03-23] MEDS ORDERED: DEXTROSE 5%-WATER - 50 ML IVPB ONE (16:20)
[2018-03-23] MEDS: CEFTRIAXONE 1 GM in DEXTROSE 5%-WATER - 50 ML IVPB SCH (16:41)
--- NOTE | 2018-03-23 18:24 | PN ---
Teaching Attending Note ATTENDING PHYSICIAN STATEMENT I saw and evaluated the patient. I reviewed the resident's note and discussed the case with the resident. I agree with the resident's findings and plan as documented. SUBJECTIVE: OBJECTIVE: ASSESSMENT AND PLAN:
[2018-03-23] MEDS: MIRTAZAPINE 15 MG TABLET (FP) PO SCH (22:06)
[2018-03-24] MEDS: METOCLOPRAMIDE HCL INJECTION 10 MG/2 ML VIAL IVPB SCH ×3 (03:11→17:12)
[2018-03-24] MEDS: SODIUM CHLORIDE 1,000 ML IV SCH ×3 (03:11→22:00)
[2018-03-24 04:18] LABS: SERUM IRON SATURATION 15 % (15-55); TOTAL IRON BINDING CAPACITY 169 ug/dL (250-450); UIBC 143 ug/dL (111-343)
[2018-03-24] MEDS: INSULIN SLIDING SCALE (NOVOLOG) 1 VIAL SQ SCH ×4 (06:50→22:15)
[2018-03-24 08:28] LABS: BASO % 0.9 % (0-2.0); EOS % 3.6 % (0-4.5); HEMATOCRIT 24.6 % (35.4-49); HEMOGLOBIN 7.9 GM/dL (11.7-16.9); LYMPH % 17.3 % (8-40); MCHC 32.1 g/dl (32.0-35.9); MEAN CELL VOLUME 77.8 fl (80-96); MEAN PLT VOLUME 8.5 fl (7.5-11.1); MONO % 11.8 % (3.8-10.2); NEUT % 66.4 % (42.8-82.8); PLATELET COUNT 304 K/MM3 (134-434); RBC 3.16 M/mm3 (4.00-5.60); RDW 17.5 % (11.9-15.9); WHITE BLOOD COUNT 4.8 K/mm3 (4.0-10.0)
[2018-03-24 08:57] LABS: ALBUMIN 2.3 g/dl (3.4-5.0); ALK PHOS 79 U/L (45-117); ANION GAP 8 MMOL/L (8-16); BILIRUBIN,TOTAL 0.5 mg/dL (0.2-1); BLOOD UREA NITROGEN 15 mg/dL (7-18); CALCIUM 7.6 mg/dL (8.5-10.1); CHLORIDE 107 mmol/L (98-107); CO2 27 mmol/L (21-32); CREATININE 0.7 mg/dL (0.55-1.3); GLUCOSE,RANDOM 79 mg/dL (74-106); POTASSIUM 5.1 mmol/L (3.5-5.1); SGOT/AST 11 U/L (15-37); SGPT/ALT 14 U/L (13-61); SODIUM 142 mmol/L (136-145); TOT PROT 5.2 g/dl (6.4-8.2)
[2018-03-24] MEDS ORDERED: DEXTROSE 5%-WATER - 50 ML IVPB ONE (10:53)
[2018-03-24] MEDS ORDERED: cefTRIAXone SODIUM 1 GM VIAL ONE (10:53)
[2018-03-24] MEDS: PANTOPRAZOLE 20 MG TABLET (FP) PO SCH (10:54)
[2018-03-24] MEDS: HEPARIN NA (PORCINE) 5,000 UNITS/ML 1ML VIAL SQ SCH ×2 (10:54→22:00)
[2018-03-24] MEDS: amLODIPine BESYLATE 5 MG TABLET (FP) PO SCH (10:55)
[2018-03-24] MEDS: CEFTRIAXONE 1 GM in DEXTROSE 5%-WATER - 50 ML IVPB SCH (10:55)
[2018-03-24] MEDS: TAMSULOSIN HCL 0.4 MG CAP PO SCH (10:55)
[2018-03-24] MEDS: RANITIDINE HCL 150 MG TABLET (FP) PO SCH (10:55)
[2018-03-24] MEDS: BACLOFEN 10 MG TABLET (FP) PO SCH (10:55)
[2018-03-24] MEDS: POLYETHYLENE GLYCOL 3350 255 GM BTL PO SCH (10:58)
--- NOTE | 2018-03-24 13:18 | PN ---
Progress Note, Physician - Current Medication List Current Medications: Active Medications Amlodipine Besylate (Norvasc -) 5 mg PO DAILY [facility] Last Admin: 03/24/18 10:55 Dose: 5 mg Baclofen (Lioresal -) 5 mg PO DAILY JOHN Last Admin: 03/24/18 10:55 Dose: 5 mg Heparin Sodium (Porcine) (Heparin -) 5,000 unit SQ BID JOHN Last Admin: 03/24/18 10:54 Dose: 5,000 unit Sodium Chloride (Normal Saline -) 1,000 mls @ 75 mls/hr IV ASDIR JOHN Last Admin: 03/24/18 03:11 Dose: Not Given Ceftriaxone Sodium 1 gm/ (Dextrose) 50 mls @ 100 mls/hr IVPB DAILY [facility]; Protocol Last Admin: 03/24/18 10:55 Dose: 100 mls/hr Insulin Aspart (Novolog Vial Sliding Scale -) 1 vial SQ ACHS JOHN; Protocol Last Admin: 03/24/18 12:09 Dose: 2 units Metoclopramide HCl (Reglan Injection -) 10 mg IVPB Q8H-IV JOHN Last Admin: 03/24/18 10:54 Dose: 10 mg Mirtazapine (Remeron -) 15 mg PO HS [facility] Last Admin: 03/23/18 22:06 Dose: 15 mg Ondansetron HCl (Zofran Injection) 4 mg IVPUSH Q4H PRN PRN Reason: NAUSEA AND/OR VOMITING Pantoprazole Sodium (Protonix -) 20 mg PO DAILY [facility] Last Admin: 03/24/18 10:54 Dose: 20 mg Polyethylene Glycol (Miralax (For Bowel Prep) -) 17 gm PO DAILY [facility] Last Admin: 03/24/18 10:58 Dose: 17 grams Ranitidine HCl (Zantac -) 150 mg PO DAILY [facility] Last Admin: 03/24/18 10:55 Dose: 150 mg Tamsulosin HCl (Flomax -) 0.4 mg PO DAILY@0830 [facility] Last Admin: 03/24/18 10:55 Dose: 0.4 mg - Objective Vital Signs: Vital Signs Temperature 98.8 F 03/24/18 05:00 Pulse Rate 93 H 03/24/18 05:00 Respiratory Rate 20 03/24/18 05:00 Blood Pressure 143/70 03/24/18 05:00 O2 Sat by Pulse Oximetry (%) 97 03/23/18 21:00 Cardiovascular: Yes: S1, S2 Respiratory: Yes: Regular, CTA Bilaterally Gastrointestinal: Yes: Normal Bowel Sounds, Soft Labs: CBC, BMP 03/24/18 07:00 03/24/18 07:00 Problem List - Problems (1) Anemia Assessment/Plan: -S/P prbc monitor labs w/u in progress gi hem on case Code(s): D64.9 - ANEMIA, UNSPECIFIED Qualifiers: Anemia type: unspecified type Qualified Code(s): D64.9 - Anemia, unspecified (2) Nausea & vomiting Assessment/Plan: -montor ivf Code(s): R11.2 - NAUSEA WITH VOMITING, UNSPECIFIED Qualifiers: Vomiting type: unspecified Vomiting Intractability: non-intractable Qualified Code(s): R11.2 - Nausea with vomiting, unspecified (3) UTI (urinary tract infection) Assessment/Plan: -Rocephin id consult Code(s): N39.0 - URINARY TRACT INFECTION, SITE NOT SPECIFIED Qualifiers: Urinary tract infection type: acute cystitis Hematuria presence: without hematuria Qualified Code(s): N30.00 - Acute cystitis without hematuria (4) Diabetes Assessment/Plan: bgm ss endo Code(s): E11.9 - TYPE 2 DIABETES MELLITUS WITHOUT COMPLICATIONS
--- NOTE | 2018-03-24 16:01 | PN ---
GI Progress Note Subjective: Patient noted to be weak and had mild SOB - Objective Vital Signs: Vital Signs Temperature 98.5 F 03/24/18 13:40 Pulse Rate 102 H 03/24/18 13:40 Respiratory Rate 18 03/24/18 13:40 Blood Pressure 121/53 L 03/24/18 13:40 O2 Sat by Pulse Oximetry (%) 94 L 03/24/18 09:00 Constitutional: Cachectic HENT: Yes: Normocephalic Neck: Yes: Trachea Midline Respiratory: Yes: CTA Bilaterally ...Palpate: Yes: Soft. No: Firm/Rigid, Guarding, Hepatomegaly, Mass, Pulsatile Mass, Splenomegaly, Tenderness, Tenderness, Epigastium Labs: CBC, BMP 03/24/18 07:00 03/24/18 07:00 Problem List - Problems (1) Anemia Assessment/Plan: etiology unclear R> will need medical clearance patient with right pleural effusion Code(s): D64.9 - ANEMIA, UNSPECIFIED Qualifiers: Anemia type: unspecified type Qualified Code(s): D64.9 - Anemia, unspecified
--- NOTE | 2018-03-24 19:50 | PN ---
Progress Note (short form) - Note Progress Note: ID Consult dictated UTI R/O sepsis secondary to UTI L pleural effusion Ertapenem 1gm IVPB q24h GI workup
[2018-03-24] MEDS: MIRTAZAPINE 15 MG TABLET (FP) PO SCH ×2 (22:00)
[2018-03-24] MEDS: ERTAPENEM SODIUM 1 GM in SODIUM CHLORIDE 50 ML IVPB SCH (22:00)
--- NOTE | 2018-03-24 22:39 | CONSULT ---
Consult Consult Specialty:: endocrine Referred by:: dr.[email or web address] moreno Reason for Consultation:: diabetes mellitus. uncontrolled - History of Present Illness Chief Complaint: nausea weak History of Present Illness: 82 year old male with pmhx of dysphagia, CVA, TYpe 1 DM, HTN GERD, BPH, pressure ulcer, contractures, bed bound male BIBA from [facility] for persistent vomiting for several days. has had previosly epigastric pain however has subsided. he denies shortness of breath, chest pain. - Alcohol/Substance Use Hx Alcohol Use: No - Smoking History Smoking history: Never smoked Have you smoked in the past 12 months: No Home Medications - Allergies Allergies/Adverse Reactions: Allergies Allergy/AdvReac Type Severity Reaction Status Date / Time No Known Allergies Allergy Verified 03/21/18 19:10 - Home Medications Home Medications: Ambulatory Orders Acetaminophen [Tylenol] 650 mg PO DAILY 03/21/18 Amlodipine Besylate [Norvasc -] 5 mg PO DAILY 03/21/18 Baclofen 5 mg PO DAILY 03/21/18 Collagenase Clostridium Hist. [Santyl] 1 applic TP DAILY 03/21/18 Docusate Sodium [Colace] 200 mg PO DAILY 03/21/18 Famotidine [Pepcid] 20 mg PO DAILY 03/21/18 Ferrous Sulfate 325 mg PO DAILY 03/21/18 Linagliptin [Tradjenta] 5 mg PO DAILY 03/21/18 Mag Hydrox/Al Hydrox/Simeth [Mylanta Oral Suspension -] 10 ml PO DAILY 03/21/18 Mirtazapine [Remeron -] 15 mg PO DAILY 03/21/18 Omeprazole 20 mg PO DAILY 03/21/18 Ondansetron [Zofran -] 4 mg PO DAILY 03/21/18 Polyethylene Glycol 3350 [Glycolax] 17 gm PO DAILY 03/21/18 Simethicone 125 mg PO DAILY 03/21/18 Tamsulosin HCl [Flomax] 0.4 mg PO DAILY 03/21/18 Review of Systems - Review of Systems Constitutional: reports: Loss of Appetite Eyes: reports: No Symptoms HENT: reports: No Symptoms Neck: reports: No Symptoms Cardiovascular: reports: Shortness of Breath Respiratory: reports: Cough, Exercise Intolerance, SOB, SOB on Exertion Gastrointestinal: reports: Constipation Genitourinary: reports: Incontinence Breasts: reports: No Symptoms Reported Musculoskeletal: reports: Extremity Pain, Joint Swelling, Muscle Cramps, Muscle Weakness Integumentary: reports: No Symptoms Neurological: reports: Pre-Existing Deficit, Weakness Physical Exam Vital Signs: Vital Signs Temperature 99.5 F 03/24/18 21:00 Pulse Rate 106 H 03/24/18 21:00 Respiratory Rate 20 03/24/18 21:00 Blood Pressure 132/59 L 03/24/18 21:00 O2 Sat by Pulse Oximetry (%) 94 L 03/24/18 09:00 Constitutional: Yes: Anxious Eyes: Yes: EOM Intact HENT: Yes: Normocephalic Neck: Yes: Trachea Midline Cardiovascular: Yes: Tachycardia Respiratory: Yes: CTA Bilaterally Gastrointestinal: Yes: Normal Bowel Sounds ...Rectal Exam: Yes: Deferred Breast(s): Yes: Skin Changes Musculoskeletal: Yes: Muscle Weakness Edema: No Neurological: Yes: Alert, Oriented Labs: CBC, BMP 03/24/18 07:00 03/24/18 07:00 Problem List - Problems (1) BPH (benign prostatic hyperplasia) Code(s): N40.0 - BENIGN PROSTATIC HYPERPLASIA WITHOUT LOWER URINRY TRACT SYMP (2) Dehydration Code(s): E86.0 - DEHYDRATION (3) Diabetes Code(s): E11.9 - TYPE 2 DIABETES MELLITUS WITHOUT COMPLICATIONS (4) Epigastric abdominal pain Code(s): R10.13 - EPIGASTRIC PAIN (5) Nausea & vomiting Code(s): R11.2 - NAUSEA WITH VOMITING, UNSPECIFIED Qualifiers: Vomiting type: unspecified Vomiting Intractability: non-intractable Qualified Code(s): R11.2 - Nausea with vomiting, unspecified (6) UTI (urinary tract infection) Code(s): N39.0 - URINARY TRACT INFECTION, SITE NOT SPECIFIED Qualifiers: Urinary tract infection type: acute cystitis Hematuria presence: without hematuria Qualified Code(s): N30.00 - Acute cystitis without hematuria Assessment/Plan Current Active Problems Anemia (Acute) BPH (benign prostatic hyperplasia) (Acute) Dehydration (Acute) Diabetes (Acute) Epigastric abdominal pain (Acute) Nausea & vomiting (Acute) UTI (urinary tract infection) (Acute) Abnormal Lab Results 03/22/18 03/23/18 03/24/18 11:25 06:30 07:00 RBC 3.16 L Hgb 7.9 L Hct 24.6 L MCV 77.8 L MCH 25.0 L RDW 17.5 H Monocytes % 11.8 H Calcium Iron 26 L TIBC 169 L Transferrin 135 L AST Total Protein Albumin Crossmatch See Detail 03/24/18 07:00 RBC Hgb Hct MCV MCH RDW Monocytes % Calcium 7.6 L Iron TIBC Transferrin AST 11 L Total Protein 5.2 L Albumin 2.3 L Crossmatch Laboratory Results - last 24 hr 03/22/18 03/23/18 03/24/18 11:25 06:30 06:49 WBC RBC Hgb Hct MCV MCH MCHC RDW Plt Count MPV Absolute Neuts (auto) Neutrophils % Lymphocytes % Monocytes % Eosinophils % Basophils % Nucleated RBC % Sodium Potassium Chloride Carbon Dioxide Anion Gap BUN Creatinine Creat Clearance w eGFR POC Glucometer 91 Random Glucose Calcium Iron 26 L TIBC 169 L Iron Saturation 15 Transferrin 135 L Total Bilirubin AST ALT Alkaline Phosphatase Total Protein Albumin Blood Type O NEGATIVE Crossmatch See Detail 03/24/18 03/24/18 03/24/18 07:00 07:00 11:41 WBC 4.8 RBC 3.16 L Hgb 7.9 L Hct 24.6 L MCV 77.8 L MCH 25.0 L MCHC 32.1 RDW 17.5 H Plt Count 304 MPV 8.5 Absolute Neuts (auto) 3.2 Neutrophils % 66.4 Lymphocytes % 17.3 Monocytes % 11.8 H Eosinophils % 3.6 Basophils % 0.9 Nucleated RBC % 0 Sodium 142 Potassium 5.1 Chloride 107 Carbon Dioxide 27 Anion Gap 8 BUN 15 Creatinine 0.7 Creat Clearance w eGFR > 60 POC Glucometer 176 Random Glucose 79 Calcium 7.6 L Iron TIBC Iron Saturation Transferrin Total Bilirubin 0.5 AST 11 L ALT 14 Alkaline Phosphatase 79 Total Protein 5.2 L Albumin 2.3 L Blood Type Crossmatch 03/24/18 03/24/18 17:12 22:02 WBC RBC Hgb Hct MCV MCH MCHC RDW Plt Count MPV Absolute Neuts (auto) Neutrophils % Lymphocytes % Monocytes % Eosinophils % Basophils % Nucleated RBC % Sodium Potassium Chloride Carbon Dioxide Anion Gap BUN Creatinine Creat Clearance w eGFR POC Glucometer 218 222 Random Glucose Calcium Iron TIBC Iron Saturation Transferrin Total Bilirubin AST ALT Alkaline Phosphatase Total Protein Albumin Blood Type Crossmatch plan: bgm qid novolog scale levemir 10 units am while nausea and gi symptoms persist
[2018-03-25] MEDS: METOCLOPRAMIDE HCL INJECTION 10 MG/2 ML VIAL IVPB SCH ×3 (03:15→18:33)
[2018-03-25] MEDS: SODIUM CHLORIDE 1,000 ML IV SCH ×2 (06:48→18:33)
[2018-03-25] MEDS: INSULIN SLIDING SCALE (NOVOLOG) 1 VIAL SQ SCH ×4 (06:48→23:43)
--- NOTE | 2018-03-25 08:57 | CONS ---
DATE OF CONSULTATION: DATE OF DICTATION: 03/24/2018 The patient is an 82-year-old male who is evaluated for urinary tract infection. He was admitted to the hospital on March 21, 2018, with intractable nausea and vomiting. He is a retirement resident. According to the notes, he has had persistent nausea and vomiting for the past 2 weeks. He is presently being evaluated by GI. His hospital course was complicated by pyuria and a positive urine culture for ESBL. He is awake and alert. He offers no complaints. The patient is bed-bound and contracted. He denies any abdominal pain, dysuria, or hematuria. PAST MEDICAL HISTORY: Positive for stroke, diabetes mellitus, hypertension, gastroesophageal reflux, benign prostatitic hypertrophy. No known allergies. MEDICATIONS: Zofran; Flomax; ; Remeron; Norvasc; Baclofen; Zantac; Protonix. SOCIAL HISTORY: He is a resident of a [facility] facility. Nonsmoker, nondrinker. SYSTEMS REVIEW: Neurologic: Positive for stroke. No loss of consciousness, seizure activity, focal weakness. Cardiac: Negative for chest pain or palpitations. Respiratory: Negative cough or sputum production. Gastrointestinal: As per HPI. Genitourinary: Negative for urinary tract infection. LABORATORY DATA: White count 4.8, hematocrit 24.6, platelets 304. Creatinine 0.7. Urinalysis with 900 white cells. Urine culture with ESBL. Blood culture is negative. Chest x-ray shows a large left pleural effusion. PHYSICAL EXAMINATION: General: He is chronically ill-appearing, contracted. Vital Signs: Temperature 98.3, blood pressure 138/51, pulse 107 and regular, respirations 20/min. HEENT: Sclerae anicteric. Heart Sounds: S1, S2. Lungs: Clear. Abdomen: Soft. No suprapubic or flank tenderness. Extremities: Contracted. IMPRESSION: 1. Urinary tract infection, possible sepsis secondary to urinary tract infection. 2. Intractable nausea, vomiting. 3. Left pleural effusion. Start imipenem 1 g IV piggyback every 24 hours, contact isolation, GI workup. Will follow. Thank you for the kind referral. LUCRETIA SEVERINO M.D. [id number]
[2018-03-25 09:00] LABS: BASO % 0.7 % (0-2.0); EOS % 3.7 % (0-4.5); HEMATOCRIT 25.3 % (35.4-49); HEMOGLOBIN 8.1 GM/dL (11.7-16.9); LYMPH % 15.4 % (8-40); MCH 25.2 pg (25.7-33.7); MCHC 32.1 g/dl (32.0-35.9); MEAN CELL VOLUME 78.5 fl (80-96); MEAN PLT VOLUME 8.6 fl (7.5-11.1); MONO % 11.8 % (3.8-10.2); NEUT % 68.4 % (42.8-82.8); PLATELET COUNT 309 K/MM3 (134-434); RBC 3.23 M/mm3 (4.00-5.60); RDW 18.3 % (11.9-15.9)
[2018-03-25 09:42] LABS: ALBUMIN 2.2 g/dl (3.4-5.0); ALK PHOS 77 U/L (45-117); ANION GAP 7 MMOL/L (8-16); BILIRUBIN,TOTAL 0.5 mg/dL (0.2-1); BLOOD UREA NITROGEN 18 mg/dL (7-18); CALCIUM 7.4 mg/dL (8.5-10.1); CHLORIDE 105 mmol/L (98-107); CO2 27 mmol/L (21-32); CREATININE 0.9 mg/dL (0.55-1.3); GLUCOSE,RANDOM 88 mg/dL (74-106); POTASSIUM 5.3 mmol/L (3.5-5.1); SGOT/AST 13 U/L (15-37); SGPT/ALT 16 U/L (13-61); SODIUM 139 mmol/L (136-145); TOT PROT 5.1 g/dl (6.4-8.2)
[2018-03-25 10:27] LABS: LDH 186 U/L (87-246)
[2018-03-25] MEDS ORDERED: PT OWN MED DRAWER 7, Y5N ONE (11:32)
[2018-03-25] MEDS: BACLOFEN 10 MG TABLET (FP) PO SCH (11:34)
[2018-03-25] MEDS: TAMSULOSIN HCL 0.4 MG CAP PO SCH (11:35)
[2018-03-25] MEDS: ERTAPENEM SODIUM 1 GM in SODIUM CHLORIDE 50 ML IVPB SCH (11:35)
[2018-03-25] MEDS: HEPARIN NA (PORCINE) 5,000 UNITS/ML 1ML VIAL SQ SCH ×2 (11:35→23:38)
[2018-03-25] MEDS: PANTOPRAZOLE 20 MG TABLET (FP) PO SCH (11:35)
[2018-03-25] MEDS: amLODIPine BESYLATE 5 MG TABLET (FP) PO SCH (11:35)
[2018-03-25] MEDS: RANITIDINE HCL 150 MG TABLET (FP) PO SCH (11:35)
[2018-03-25] MEDS ORDERED: INSULIN (NOVOLOG) ASPART 100 UNITS/ML 10ML VIAL ONE ×2 (11:37→18:29)
[2018-03-25] MEDS: POLYETHYLENE GLYCOL 3350 255 GM BTL PO SCH (11:54)
--- NOTE | 2018-03-25 14:51 | PN ---
Progress Note, Physician - Current Medication List Current Medications: Active Medications Amlodipine Besylate (Norvasc -) 5 mg PO DAILY [facility] Last Admin: 03/25/18 11:35 Dose: 5 mg Baclofen (Lioresal -) 5 mg PO DAILY [facility] Last Admin: 03/25/18 11:34 Dose: 5 mg Heparin Sodium (Porcine) (Heparin -) 5,000 unit SQ BID JOHN Last Admin: 03/25/18 11:35 Dose: 5,000 unit Sodium Chloride (Normal Saline -) 1,000 mls @ 75 mls/hr IV ASDIR JOHN Last Admin: 03/25/18 06:48 Dose: Not Given Ertapenem 1 gm/ Sodium (Chloride) 50 mls @ 50 mls/hr IVPB DAILY [facility]; Protocol Last Admin: 03/25/18 11:35 Dose: 50 mls/hr Insulin Aspart (Novolog Vial Sliding Scale -) 1 vial SQ ACHS [facility]; Protocol Last Admin: 03/25/18 11:42 Dose: 2 units Insulin Detemir (Levemir Vial) 10 units SQ HS [facility] Metoclopramide HCl (Reglan Injection -) 10 mg IVPB Q8H-IV JOHN Last Admin: 03/25/18 11:35 Dose: 10 mg Mirtazapine (Remeron -) 15 mg PO HS [facility] Last Admin: 03/24/18 22:00 Dose: Not Given Ondansetron HCl (Zofran Injection) 4 mg IVPUSH Q4H PRN PRN Reason: NAUSEA AND/OR VOMITING Last Admin: 03/24/18 22:15 Dose: 4 mg Pantoprazole Sodium (Protonix -) 20 mg PO DAILY [facility] Last Admin: 03/25/18 11:35 Dose: 20 mg Polyethylene Glycol (Miralax (For Bowel Prep) -) 17 gm PO DAILY [facility] Last Admin: 03/25/18 11:54 Dose: 17 grams Ranitidine HCl (Zantac -) 150 mg PO DAILY [facility] Last Admin: 03/25/18 11:35 Dose: 150 mg Tamsulosin HCl (Flomax -) 0.4 mg PO DAILY@0830 [facility] Last Admin: 03/25/18 11:35 Dose: 0.4 mg - Objective Vital Signs: Vital Signs Temperature 97.4 F L 03/25/18 13:28 Pulse Rate 92 H 12/09/18 13:28 Respiratory Rate 17 03/25/18 13:28 Blood Pressure 110/71 03/25/18 13:28 O2 Sat by Pulse Oximetry (%) 94 L 03/24/18 21:00 Cardiovascular: Yes: Regular Rate and Rhythm Respiratory: Yes: Regular, CTA Bilaterally Gastrointestinal: Yes: Normal Bowel Sounds, Soft Labs: CBC, BMP 03/25/18 08:20 03/25/18 08:20 Problem List - Problems (1) Anemia Assessment/Plan: -S/P prbc monitor labs w/u in progress gi hem on case Code(s): D64.9 - ANEMIA, UNSPECIFIED Qualifiers: Anemia type: unspecified type Qualified Code(s): D64.9 - Anemia, unspecified (2) Nausea & vomiting Assessment/Plan: -montor ivf Code(s): R11.2 - NAUSEA WITH VOMITING, UNSPECIFIED Qualifiers: Vomiting type: unspecified Vomiting Intractability: non-intractable Qualified Code(s): R11.2 - Nausea with vomiting, unspecified (3) UTI (urinary tract infection) Assessment/Plan: -Rocephin id consult Code(s): N39.0 - URINARY TRACT INFECTION, SITE NOT SPECIFIED Qualifiers: Urinary tract infection type: acute cystitis Hematuria presence: without hematuria Qualified Code(s): N30.00 - Acute cystitis without hematuria (4) Diabetes Assessment/Plan: bgm ss endo Code(s): E11.9 - TYPE 2 DIABETES MELLITUS WITHOUT COMPLICATIONS
[2018-03-25] MEDS: MIRTAZAPINE 15 MG TABLET (FP) PO SCH (23:37)
[2018-03-25] MEDS: INSULIN (LEVEMIR) 100 UNITS/ML UNITS SQ SCH (23:38)
[2018-03-26] MEDS: METOCLOPRAMIDE HCL INJECTION 10 MG/2 ML VIAL IVPB SCH ×3 (01:53→18:19)
[2018-03-26] MEDS: SODIUM CHLORIDE 1,000 ML IV SCH (01:53)
[2018-03-26] MEDS: INSULIN SLIDING SCALE (NOVOLOG) 1 VIAL SQ SCH ×4 (06:27→23:26)
[2018-03-26] MEDS ORDERED: INSULIN (NOVOLOG) ASPART 100 UNITS/ML 10ML VIAL ONE (06:50)
[2018-03-26] MEDS ORDERED: PT OWN MED DRAWER 7, Y5N ONE (06:50)
[2018-03-26 07:43] LABS: BASO % 0.7 % (0-2.0); EOS % 3.6 % (0-4.5); HEMATOCRIT 25.7 % (35.4-49); HEMOGLOBIN 8.2 GM/dL (11.7-16.9); LYMPH % 17.7 % (8-40); MCH 25.2 pg (25.7-33.7); MCHC 31.7 g/dl (32.0-35.9); MEAN CELL VOLUME 79.3 fl (80-96); MEAN PLT VOLUME 8.7 fl (7.5-11.1); MONO % 12.7 % (3.8-10.2); NEUT % 65.3 % (42.8-82.8); PLATELET COUNT 280 K/MM3 (134-434); RBC 3.24 M/mm3 (4.00-5.60); RDW 18.3 % (11.9-15.9); WHITE BLOOD COUNT 4.7 K/mm3 (4.0-10.0)
[2018-03-26 07:55] LABS: ALBUMIN 2.1 g/dl (3.4-5.0); ALK PHOS 75 U/L (45-117); ANION GAP 5 MMOL/L (8-16); BILIRUBIN,TOTAL 0.4 mg/dL (0.2-1); BLOOD UREA NITROGEN 22 mg/dL (7-18); CALCIUM 7.6 mg/dL (8.5-10.1); CHLORIDE 106 mmol/L (98-107); CO2 28 mmol/L (21-32); CREATININE 0.9 mg/dL (0.55-1.3); GLUCOSE,RANDOM 80 mg/dL (74-106); SGOT/AST 14 U/L (15-37); SGPT/ALT 21 U/L (13-61); SODIUM 139 mmol/L (136-145); TOT PROT 5.1 g/dl (6.4-8.2)
[2018-03-26] MEDS: TAMSULOSIN HCL 0.4 MG CAP PO SCH (09:00)
[2018-03-26] MEDS: HEPARIN NA (PORCINE) 5,000 UNITS/ML 1ML VIAL SQ SCH ×2 (10:59→23:25)
[2018-03-26] MEDS: BACLOFEN 10 MG TABLET (FP) PO SCH (11:00)
[2018-03-26] MEDS: amLODIPine BESYLATE 5 MG TABLET (FP) PO SCH (11:00)
[2018-03-26] MEDS: PANTOPRAZOLE 20 MG TABLET (FP) PO SCH (11:00)
[2018-03-26] MEDS: RANITIDINE HCL 150 MG TABLET (FP) PO SCH (11:00)
[2018-03-26] MEDS: POLYETHYLENE GLYCOL 3350 255 GM BTL PO SCH (11:01)
[2018-03-26] MEDS ORDERED: MINERAL OIL ENEMA 133 ML ENEMA PR ONE (11:26)
[2018-03-26] MEDS: ERTAPENEM SODIUM 1 GM in SODIUM CHLORIDE 50 ML IVPB SCH (12:11)
--- NOTE | 2018-03-26 12:41 | PN ---
Progress Note, Physician Chief Complaint: patient seen and examined contracted with otero cath - Current Medication List Current Medications: Active Medications Amlodipine Besylate (Norvasc -) 5 mg PO DAILY [facility] Last Admin: 03/26/18 11:00 Dose: 5 mg Baclofen (Lioresal -) 5 mg PO DAILY [facility] Last Admin: 03/26/18 11:00 Dose: 5 mg Heparin Sodium (Porcine) (Heparin -) 5,000 unit SQ BID JOHN Last Admin: 03/26/18 10:59 Dose: 5,000 unit Sodium Chloride (Normal Saline -) 1,000 mls @ 75 mls/hr IV ASDIR JOHN Last Admin: 03/26/18 01:53 Dose: Not Given Ertapenem 1 gm/ Sodium (Chloride) 50 mls @ 50 mls/hr IVPB DAILY [facility]; Protocol Last Admin: 03/26/18 12:11 Dose: 50 mls/hr Insulin Aspart (Novolog Vial Sliding Scale -) 1 vial SQ ACHS [facility]; Protocol Last Admin: 03/26/18 11:10 Dose: Not Given Insulin Detemir (Levemir Vial) 10 units SQ HS [facility] Last Admin: 03/25/18 23:38 Dose: 10 units Metoclopramide HCl (Reglan Injection -) 10 mg IVPB Q8H-IV JOHN Last Admin: 03/26/18 11:00 Dose: 10 mg Mirtazapine (Remeron -) 15 mg PO HS [facility] Last Admin: 03/25/18 23:37 Dose: 15 mg Ondansetron HCl (Zofran Injection) 4 mg IVPUSH Q4H PRN PRN Reason: NAUSEA AND/OR VOMITING Last Admin: 03/24/18 22:15 Dose: 4 mg Pantoprazole Sodium (Protonix -) 20 mg PO DAILY [facility] Last Admin: 03/26/18 11:00 Dose: 20 mg Polyethylene Glycol (Miralax (For Bowel Prep) -) 17 gm PO DAILY [facility] Last Admin: 03/26/18 11:01 Dose: 17 grams Ranitidine HCl (Zantac -) 150 mg PO DAILY [facility] Last Admin: 03/26/18 11:00 Dose: 150 mg Tamsulosin HCl (Flomax -) 0.4 mg PO DAILY@0830 [facility] Last Admin: 03/26/18 09:00 Dose: 0.4 mg - Objective Vital Signs: Vital Signs Temperature 97.3 F L 03/26/18 09:00 Pulse Rate 66 03/26/18 09:00 Respiratory Rate 18 03/26/18 09:00 Blood Pressure 115/75 03/26/18 09:00 O2 Sat by Pulse Oximetry (%) 100 03/25/18 21:00 Constitutional: Yes: Calm Cardiovascular: Yes: Regular Rate and Rhythm, S1, S2 Respiratory: Yes: Diminished Gastrointestinal: Yes: Normal Bowel Sounds, Soft Genitourinary: Yes: Otero Present Extremities: Yes: Other (contracted) Neurological: Yes: Alert Labs: CBC, BMP 03/26/18 06:30 03/26/18 06:30 Problem List - Problems (1) Anemia Assessment/Plan: s/p prbc iron panel heme gi consult- in progress iron and ppi Code(s): D64.9 - ANEMIA, UNSPECIFIED Qualifiers: Anemia type: unspecified type Qualified Code(s): D64.9 - Anemia, unspecified (2) BPH (benign prostatic hyperplasia) Assessment/Plan: flomax Code(s): N40.0 - BENIGN PROSTATIC HYPERPLASIA WITHOUT LOWER URINRY TRACT SYMP (3) UTI (urinary tract infection) Assessment/Plan: E coli ertrapenem contact isolation Microbiology 03/21/18 21:50 Urine - Urine - Catheterized Urine Culture - Final Escherichia Coli Esbl Victim Witness Administrator Code(s): N39.0 - URINARY TRACT INFECTION, SITE NOT SPECIFIED Qualifiers: Urinary tract infection type: acute cystitis Hematuria presence: without hematuria Qualified Code(s): N30.00 - Acute cystitis without hematuria (4) Pleural effusion Assessment/Plan: pulm consult repeat cxr Code(s): J90 - PLEURAL EFFUSION, NOT ELSEWHERE CLASSIFIED (5) Fecal retention Assessment/Plan: miralax and mineral oil enema Code(s): K59.00 - CONSTIPATION, UNSPECIFIED
--- NOTE | 2018-03-26 17:28 | PN ---
Progress Note (short form) - Note Progress Note: PROGRESS NOTE FOR HEMATOLOGY/ONCOLOGY Patient seen and examined by me at bedside Patient reports feeling better today Daughter at bedside and states they will be leaving to [place] today and that she will take him to a hospital today Otherwise, patient denies fever, chills, nausea, vomiting, abdominal pain, chest pain, palpitations, shortness of breath. Vital Signs Temperature 97.9 F 03/26/18 15:56 Pulse Rate 87 03/26/18 15:56 Respiratory Rate 18 03/26/18 15:56 Blood Pressure 148/65 03/26/18 15:56 O2 Sat by Pulse Oximetry (%) 100 03/25/18 21:00 GENERAL: Thin elderly male. Awake, alert, oriented to person only, in no acute distress. EYES: PERRL sclera anicteric, conjunctiva clear. ENT:Moist mucous membranes. LUNGS: Breath sounds equal, clear to auscultation bilaterally. No wheezes, and no crackles. No accessory muscle use. HEART: RRR, normal S1 and S2 without murmur, rub or gallop. ABDOMEN: Soft, nontender, not distended, normoactive bowel sounds EXTREMITIES: Contractures throughout UE and LE. Unable to ambulate. CBC, BMP 03/26/18 06:30 03/26/18 06:30 ASSESSMENT/PLAN: Patient is an 82 year old male who presented for persistent nausea/vomiting and was found to have Anemia. We were consulted for further monitoring and management. Problem List: Nausea/Vomiting Microcytic Anemia GERD NIDDMII HTN BPH CVA w/ Dysphagia Pressure injuries PLAN: -Patient has history of Iron deficiency anemia according to [place] records and is on Iron supplements. Microcytic anemia likely from iron def with poor oral intake as well as history of persistent nausea/vomiting. -Stool Guaic negative but patient is thin and presents with severe anemia requiring transfusions. Cannot rule out malignancy source. -Requires Colonoscopy and GI work up to rule out malignancy -Transfuse As needed -Continue to monitor CBC and Coags -Patient's daughter states she wants to sign him out AMA and take him back to [place] with her and continue care there. W -Recommended CT chest with contrast to rule out any malignancy but patient's daughter would rather finish testing in [place]. Explained the risks of leaving before completing care at the hospital such as bleeding, CA, and .
--- NOTE | 2018-03-26 18:17 | PN ---
Teaching Attending Note Name of Resident: Kristen Sandoval ATTENDING PHYSICIAN STATEMENT I saw and evaluated the patient. I reviewed the resident's note and discussed the case with the resident. I agree with the resident's findings and plan as documented. ASSESSMENT AND PLAN: 82 year old male with pmhx of dysphagia, CVA, TYpe 1 DM, HTN GERD, BPH, pressure ulcer, contractures, bed bound male BIBA from [facility] for persistent vomiting x 2 weeks Very poor historian Denies specific complaints Anemia--microcytic --nl WBC/platelets Check iron sytudies/ferritin/B12/folate/protein studoes/ESR/CRP CT a/p 03/21/18 with contrast shows letpleural effusion/atelectasis, rt. pleural calcifications, splenomegaly, prostatic enlargement will need gi w/u will beata wants to transfer him to [place] for continuationof care
[2018-03-26] MEDS: INSULIN (LEVEMIR) 100 UNITS/ML UNITS SQ SCH (23:25)
[2018-03-26] MEDS: MIRTAZAPINE 15 MG TABLET (FP) PO SCH (23:26)
[2018-03-27] MEDS: SODIUM CHLORIDE 1,000 ML IV SCH (01:09)
[2018-03-27] MEDS: METOCLOPRAMIDE HCL INJECTION 10 MG/2 ML VIAL IVPB SCH ×2 (01:09→10:49)
[2018-03-27] MEDS: INSULIN SLIDING SCALE (NOVOLOG) 1 VIAL SQ SCH (06:12)
[2018-03-27] MEDS ORDERED: INSULIN (LEVEMIR) 100 UNITS/ML UNITS SQ ONE (06:20)
[2018-03-27] MEDS: TAMSULOSIN HCL 0.4 MG CAP PO SCH (08:30)
[2018-03-27] MEDS ORDERED: PT OWN MED DRAWER 7, Y5N ONE (10:39)
[2018-03-27] MEDS: PANTOPRAZOLE 20 MG TABLET (FP) PO SCH (10:49)
[2018-03-27] MEDS: amLODIPine BESYLATE 5 MG TABLET (FP) PO SCH (10:49)
[2018-03-27] MEDS: BACLOFEN 10 MG TABLET (FP) PO SCH (10:49)
[2018-03-27] MEDS: RANITIDINE HCL 150 MG TABLET (FP) PO SCH (10:50)
[2018-03-27] MEDS: HEPARIN NA (PORCINE) 5,000 UNITS/ML 1ML VIAL SQ SCH (10:50)
[2018-03-27] MEDS: ERTAPENEM SODIUM 1 GM in SODIUM CHLORIDE 50 ML IVPB SCH (10:50)
[2018-03-27] MEDS: POLYETHYLENE GLYCOL 3350 255 GM BTL PO SCH (10:51)
--- NOTE | 2018-03-27 11:14 | CON.PULM ---
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 Admitted via the ER due to persistent vomiting for several days associated with epigastric pain. No reported overt bleeding. CT abdomen/pelvis: dense pleural plaquing and moderate to large left pleural effusion. No dedicated Chest CT has been performed as the patient's daughter is apparently signing the patient out AMA and [facility]. - History Source History Provided By: Medical Record Limitations to Obtaining History: Dementia - Alcohol/Substance Use Hx Alcohol Use: No - Smoking History Smoking history: Never smoked Have you smoked in the past 12 months: No Home Medications - Allergies Allergies/Adverse Reactions: Allergies Allergy/AdvReac Type Severity Reaction Status Date / Time No Known Allergies Allergy Verified 03/21/18 19:10 - Home Medications Home Medications: Ambulatory Orders Acetaminophen [Tylenol] 650 mg PO DAILY 03/21/18 Amlodipine Besylate [Norvasc -] 5 mg PO DAILY 03/21/18 Baclofen 5 mg PO DAILY 03/21/18 Collagenase Clostridium Hist. [Santyl] 1 applic TP DAILY 03/21/18 Docusate Sodium [Colace] 200 mg PO DAILY 03/21/18 Famotidine [Pepcid] 20 mg PO DAILY 03/21/18 Ferrous Sulfate 325 mg PO DAILY 03/21/18 Linagliptin [Tradjenta] 5 mg PO DAILY 03/21/18 Mag Hydrox/Al Hydrox/Simeth [Mylanta Oral Suspension -] 10 ml PO DAILY 03/21/18 Mirtazapine [Remeron -] 15 mg PO DAILY 03/21/18 Omeprazole 20 mg PO DAILY 03/21/18 Ondansetron [Zofran -] 4 mg PO DAILY 03/21/18 Polyethylene Glycol 3350 [Glycolax] 17 gm PO DAILY 03/21/18 Simethicone 125 mg PO DAILY 03/21/18 Tamsulosin HCl [Flomax] 0.4 mg PO DAILY 03/21/18 Miscellaneous Medical Supply [Outpatient Order] 1 each ASDIR #1 misc Review of Systems Unable to obtain ROS, reason: unable to provide Physical Exam Vital Sings: Vital Signs Temperature 97.6 F 03/27/18 06:00 Pulse Rate 89 03/27/18 06:00 Respiratory Rate 20 03/27/18 06:00 Blood Pressure 132/63 03/27/18 06:00 O2 Sat by Pulse Oximetry (%) 97 03/26/18 21:00 Constitutional: Yes: No Distress, Thin Eyes: Yes: Conjunctiva Clear HENT: Yes: Atraumatic, Normocephalic Neck: Yes: Supple, Trachea Midline Cardiovascular: Yes: Regular Rate and Rhythm Respiratory: Yes: Diminished, On Nasal O2, Rhonchi, SOB. No: Accessory Muscle Use, Rales, Stridor, Tachypnea, Wheezes ...Inspection: Yes: WNL ...Clubbing: No Gastrointestinal: Yes: Normal Bowel Sounds, Soft Musculoskeletal: Yes: WNL Extremities: Yes: WNL Edema: No Peripheral Pulses WNL: Yes Integumentary: Yes: WNL Neurological: Yes: Alert, Confusion. No: Oriented Psychiatric: Yes: Alert. No: Oriented Labs: CBC, BMP 03/26/18 06:30 03/26/18 06:30 Imaging - Results Chest X-ray: Report Reviewed, Image Reviewed Cat Scan: Report Reviewed, Image Reviewed Problem List - Problems (1) Pleural plaque Code(s): J92.9 - PLEURAL PLAQUE WITHOUT ASBESTOS (2) Anemia Code(s): D64.9 - ANEMIA, UNSPECIFIED Qualifiers: Anemia type: unspecified type Qualified Code(s): D64.9 - Anemia, unspecified (3) BPH (benign prostatic hyperplasia) Code(s): N40.0 - BENIGN PROSTATIC HYPERPLASIA WITHOUT LOWER URINRY TRACT SYMP (4) Dehydration Code(s): E86.0 - DEHYDRATION (5) Diabetes Code(s): E11.9 - TYPE 2 DIABETES MELLITUS WITHOUT COMPLICATIONS (6) Epigastric abdominal pain Code(s): R10.13 - EPIGASTRIC PAIN (7) Nausea & vomiting Code(s): R11.2 - NAUSEA WITH VOMITING, UNSPECIFIED Qualifiers: Vomiting type: unspecified Vomiting Intractability: non-intractable Qualified Code(s): R11.2 - Nausea with vomiting, unspecified (8) Pleural effusion Code(s): J90 - PLEURAL EFFUSION, NOT ELSEWHERE CLASSIFIED Assessment/Plan Patient's daughter will be signing him out AMA. He should have a dedicated Chest CT for further evaluation of the left pleural effusion. If family is inclined for further workup, diagnostic thoracentesis should be considered. Family should be cautioned about taking the patient on air travel given his poor overall condition. I am available to provide information concerning chest imaging findings to any health care providers that he may see in [facility] Gutierrez
[2018-03-27 11:24] VITALS: BP 139/54; PULSE 83; TEMP 98
--- NOTE | 2018-03-27 15:36 | DS ---
Physical Examination Vital Signs: Vital Signs Temperature 98.0 F 03/27/18 11:00 Pulse Rate 83 03/27/18 11:00 Respiratory Rate 20 03/27/18 11:00 Blood Pressure 139/54 L 03/27/18 11:00 O2 Sat by Pulse Oximetry (%) 97 03/27/18 09:00 Labs: CBC, BMP 03/26/18 06:30 03/26/18 06:30 Discharge Summary Reason For Visit: URINARY TRACT INFECTION/ANEMIA/EPIGASTRIC - Instructions Referrals: Rajeev Villela [Primary Care Provider] - Disposition: AGAINST MEDICAL ADVICE - Home Medications Comprehensive Discharge Medication List: Ambulatory Orders Acetaminophen [Tylenol] 650 mg PO DAILY 03/21/18 Amlodipine Besylate [Norvasc -] 5 mg PO DAILY 03/21/18 Baclofen 5 mg PO DAILY 03/21/18 Collagenase Clostridium Hist. [Santyl] 1 applic TP DAILY 03/21/18 Docusate Sodium [Colace] 200 mg PO DAILY 03/21/18 Famotidine [Pepcid] 20 mg PO DAILY 03/21/18 Ferrous Sulfate 325 mg PO DAILY 03/21/18 Linagliptin [Tradjenta] 5 mg PO DAILY 03/21/18 Mag Hydrox/Al Hydrox/Simeth [Mylanta Oral Suspension -] 10 ml PO DAILY 03/21/18 Mirtazapine [Remeron -] 15 mg PO DAILY 03/21/18 Omeprazole 20 mg PO DAILY 03/21/18 Ondansetron [Zofran -] 4 mg PO DAILY 03/21/18 Polyethylene Glycol 3350 [Glycolax] 17 gm PO DAILY 03/21/18 Simethicone 125 mg PO DAILY 03/21/18 Tamsulosin HCl [Flomax] 0.4 mg PO DAILY 03/21/18 Miscellaneous Medical Supply [Outpatient Order] 1 each [place] [facility] [place]
--- NOTE | 2018-03-27 15:37 | PN ---
Progress Note (short form) - Note Progress Note: DAUGHTER CALLED ME AND WANTS TO TAKE HER DAD HOME TO [place] TODAY I EXPLAINED THIS WAS NOT RECOMMENDED AND HE SHOULD STAY AND CONTINUE HIS ANTIBIOTICS AND CARDIO/PULM WORKUP. SHE SIGNED HIM OUT AMA AND UNDERSTANDS THE RISK OF POSSIBLE SUDDEN .
== END 2018-03-27 12:52 | disposition left against medical advice (07) | DRG 187 ==
LOC: JER 18:56 → JERBED 03-22 00:27 → J5S 03-22 02:04 → OBSVTOIN 03-23 14:39
PROVIDERS: ADMIT Internal Medicine; ATTEND Family Medicine
PROC: 30233N1 Transfusion of Nonautologous Red Blood Cells into Peripheral Vein, Percutaneous Approach (ICD-10-PCS; principal; 2018-03-22)
DX: J90 Pleural effusion, not elsewhere classified (principal); N39.0 Urinary tract infection, site not specified; R64 Cachexia; J98.11 Atelectasis; K21.9 Gastro-esophageal reflux disease without esophagitis; N40.0 Benign prostatic hyperplasia without lower urinary tract symptoms; I10 Essential (primary) hypertension; E86.0 Dehydration; R62.7 Adult failure to thrive; D64.9 Anemia, unspecified; Z74.01 Bed confinement status; E11.9 Type 2 diabetes mellitus without complications; I69.391 Dysphagia following cerebral infarction; R13.10 Dysphagia, unspecified; D50.9 Iron deficiency anemia, unspecified; K59.00 Constipation, unspecified; B96.20 Unspecified Escherichia coli [E. coli] as the cause of diseases classified elsewhere; Z77.090 Contact with and (suspected) exposure to asbestos; L89.610 Pressure ulcer of right heel, unstageable; L89.310 Pressure ulcer of right buttock, unstageable; R16.1 Splenomegaly, not elsewhere classified; R11.2 Nausea with vomiting, unspecified; Z68.21 Body mass index [BMI] 21.0-21.9, adult
CPT/HCPCS: 36415; 36430; 36511; 71045-TC-FY; 74177-TC; 80053; 81003; 81015; 82009; 82272; 82550; 82607; 82728; 82747; 82803; 82962; 83036; 83540; 83550; 83605; 83615; 83690; 84466; 84484; 85014; 85025; 85027; 85651; 86140; 86850; 86900; 86901; 86922; 87040; 87086; 87186; 93005; 93010; 99285-25; G0378; J0475; J1644; J7030; P9038; P9058